=== PATIENT | male | born 1990 | race Caucasian/White ===

== ENCOUNTER 2025-01-25 03:06 | Emergency (ER) | payer OTHER, SELFPAY ==
[2025-01-25 03:09] VITALS: BP 135/61; PULSE 93; RESP 16; TEMP 36.6; O2SAT 95; BMI 43.4
--- NOTE | 2025-01-25 03:20 | CRLHL7_ITS ---
For Patients: As a result of the Century Cures Act, medical imaging exams and procedure reports are released immediately into your electronic medical record. You may view this report before your referring provider. If you have questions, please contact your health care provider. INDICATION: Jumping foot injury, heel pain, jump into water hit rock TECHNIQUE: Foot radiograph 3 views left COMPARISON: None FINDINGS: Bone: No acute fractures or aggressive bone lesions are identified. Joint: The visualized hindfoot, midfoot, and forefoot joints are unremarkable in appearance. No significant ankle effusion is seen. Soft tissue: Unremarkable. No radiopaque foreign bodies are seen. IMPRESSION: 1. No acute osseous injuries are noted. Dictated by: Neville Monroe MD @ 01/25/2025 03:36:22 (Electronically Signed)
--- NOTE | 2025-01-25 03:22 | ED.LOWEXIN ---
HPI - Extremity Injury (Lower) General Chief Complaint: Extremity Pain/Injury, Lower Stated Complaint: L foot injury Time Seen by Provider: 01/25/25 03:12 Source: patient Mode of arrival: ambulatory Limitations: no limitations History of Present Illness HPI Narrative: Patient presents to the ED in the wee hours with injury to his left foot, specifically left medial heel area. This happened 13 hours ago. Pain worsened tonight and he was unable to sleep. Did not try taking Tylenol, ibuprofen or any other interventions at home prior to coming to ED. Does not know when his last tetanus shot was. Does have a cut on the bottom of the heel. Injury happened [place], [place] the bridge onto a rock which he has done several times before and noticed pain. No head injury, no injury to other areas. Not anticoagulated, no long-term health problems. Not immunocompromised. Pain worse with weight-bearing. Denies past medical problems. Prior surgery on the opposite leg. No allergies, no long-term meds. Related Data Home Medications ?Medication ?Instructions ?Recorded ?Confirmed No Known Home Medications 01/25/25 01/25/25 Allergies Allergy/AdvReac Type Severity Reaction Status Date / Time No Known Drug Allergies Allergy Verified 01/25/25 03:15 Exam Const: Vital Signs, click to edit/add: Vital Signs - 24 hr 01/25/25 03:09 Temperature 98 F Pulse Rate [Pulse Oximeter] 93 Respiratory Rate 16 Blood Pressure [Le ft Upper Arm] 135/61 Pulse Oximetry 95 Oxygen Delivery Me thod Room Air Documenting provider has reviewed patient's vital signs: yes Common normals: no apparent distress General appearance: cooperative and well kempt HENMT: Common normals: normocephalic Head and scalp: normocephalic Face and sinus: normal facial exam Eye: Common normals: conjunctivae normal General eye: normal appearance of both eyes Conjunctiva: conjunctiva(e) normal Neck & C-Spine: General: normal visual inspection Resp: Common normals: normal respiratory effort Effort & inspection: able to speak in complete sentences Cardio: Common normals: regular rate and regular rhythm Rate: regular rate Rhythm: regular rhythm Other: Regular pulse palpated through left dorsalis pedis. Extremity: Other: Right foot appears grossly normal. A few little micro cuts but none with active bleeding. The left foot has swelling on the medial left heel and arch area. Superficial 1 cm horizontal laceration with no active bleeding. No evidence of foreign body. Tenderness to palpation of heal, plantar fascia. No tenderness on the ball of the foot, toes. Normal range of motion with no point bony tenderness or deformity to ankle. Remainder of midfoot and forefoot exam normal. Good capillary refill in toes and normal dorsalis pedis pulses. No deformities. Psych: Appearance: well kempt Mood and affect: euthymic mood Memory/cognition: memory grossly intact Insight: insight good Judgement: judgment good Skin: Narrative: Small micro lacerations to right foot, left foot with 1 cm horizontal laceration near area of pain. No active bleeding. Course Course ED Course: Left heel pain after jumping onto a rock. Possible fracture. Suspect sprain. Will give Toradol 10 mg p.o. x1. No obvious signs of neurovascular injury. We need to look up his tetanus shot date. Await x-ray. Reevaluation(s) Time of Reevaluation #1: 03:58 Reevaluation #1: Counseled patient on findings of x-ray, no signs of fracture. Procedure: Wound closure. Area was cleansed with soap and water, patted dry. Dermabond used to close the 1 cm horizontal incision with good wound reapproximation and hemostasis. Well tolerated. Counseled on wound care. Toradol has already been given, will also give Tylenol 1000 mg p.o. x1 as well as 25 of Vistaril for pain control. Placed in postop shoe, given crutches. Work ability note to be off of work for 3 days, then may return without restrictions. If he still has persistent symptoms, he should follow up with primary care provider and orthopedic provider for further restrictions. Counseled that we do not see any evidence of serious fracture but there can be soft tissue injuries that may not be identified on x-ray. None of these seem particularly dangerous at this time, but we should look closer if he does not have dramatic improvement in 5 days. Counseled on proper doses of Tylenol and ibuprofen for pain control, written instructions provided. Tetanus shot updated prior to discharge. Vital Signs Vital signs: Initial Vital Signs Temperature 98 F 01/25/25 03:09 Temperature Source Temporal Artery Scan 01/25/25 03:09 Pulse Rate 93 01/25/25 03:09 Respiratory Rate 16 09/29/25 03:09 Blood Pressure 135/61 01/25/25 03:09 Blood Pressure Mean 85 01/25/25 03:09 Blood Pressure Position Semi-Fowlers 01/25/25 03:09 Pulse Oximetry 95 01/25/25 03:09 Oxygen Delivery Method Room Air 01/25/25 03:09 Vital Signs Temperature 98 F 01/25/25 03:09 Pulse Rate 93 01/25/25 03:09 Respiratory Rate 16 01/25/25 03:09 Blood Pressure 135/61 01/25/25 03:09 Pulse Oximetry 95 01/25/25 03:09 Oxygen Delivery Method Room Air 01/25/25 03:09 Temperature 98 F 01/25/25 03:09 Pulse Rate 93 01/25/25 03:09 Respiratory Rate 16 01/25/25 03:09 Blood Pressure 135/61 01/25/25 03:09 Pulse Oximetry 95 01/25/25 03:09 Oxygen Delivery Method Room Air 01/25/25 03:09 Medications Administered Medications: Generic Name Dose Route Start Last Admin Trade Name Freq PRN Reason Stop Dose Admin Ketorolac Tromethamine 10 mg 01/25/25 03:20 01/25/25 03:31 Ketorolac 10 Mg Tablet PO 01/25/25 03:21 10 mg ONCE ONE Administration Tetanus/Diphtheria Toxoids Adsorbed 0.5 ml 01/25/25 03:31 01/25/25 03:39 Tetanus-Diphtheria Toxoids/Pf 0.5 Ml Syringe IM 01/25/25 03:32 0.5 ml .ONCE ONE Administration MDM - Extremity Injury (Lower) Imaging Data X-ray left foot: Attestation: I have reviewed the pertinent imaging results. My impression: Good bone density but no evidence of fracture. Good bony alignment with no serious soft tissue injuries or signs of effusions that would draw me towards an occult fracture Radiologist's impression: IMPRESSION: 1. No acute osseous injuries are noted. Dictated by: Neville Monroe MD @ 01/25/2025 03:36:22 Discharge Plan Discharge Clinical Impression: Contusion of foot Patient Disposition: Home w/ Parent or Adult Condition: Stable Instructions: Foot Contusion (ED) Additional Instructions: As we discussed, the x-ray does not show any signs of fracture. There are no signs of nerve or blood vessel injury either. The heel was designed to take pretty significant impact though I do not recommend jumping from elevated surfaces like this anymore at your age and size. It is safe to bear weight on your foot but it will be quite painful. You will not be able to work for the next few days. I have given you a note that reflects this. Plan to definitely be off Saturday and Saturday. Light your boss know that you will likely be out Saturday as well but will update them on Saturday as to how things are going. If you are still unable to return to work after that, you will need to see a primary care provider for more long-term work restrictions. I would recommend following up with an orthopedic provider if things are not markedly improved in 5 days. For pain, I recommend Tylenol 1000 mg every 6 hours and or ibuprofen 600 mg every 6 hours or 800 mg every 8 hours. Your next dose of these medications may be taken around 9:00 a.m.. A small amount of surgical glue was applied to the bottom of the cut on your foot. Your tetanus shot was updated as well. The glue will flake off on its own in a few days but allow the skin to heal well reducing infection. Try to keep the foot elevated for the next 24 hours. You should return to the emergency department if you have loss of function or other severe, alarming symptoms. It is okay to use gentle [id number] sleep aids like melatonin, Benadryl or Unisom to help you sleep in addition to the pain medications as above. Activity Level: Activity as Tolerated Discharge Diet: Regular Prescriptions: No Action No Known Home Medications Follow Up/Referrals: Provider,Not a Local [Primary Care Provider, Family Practice] Stand Alone Forms: [facility] Info Instructions
[2025-01-25] MEDS: KETOROLAC 10 MG TABLET PO (03:31)
[2025-01-25] MEDS: TETANUS-DIPHTHERIA TOXOIDS/PF 0.5 ML SYRINGE IM (03:39)
[2025-01-25] MEDS: ACETAMINOPHEN 500 MG TABLET 1000 MG PO (04:01)
== END 2025-01-25 04:27 | disposition home or self-care (01) ==
PROVIDERS: Emergency Provider Family Medicine
DX: S91.312A Laceration without foreign body, left foot, initial encounter (principal); W22.8XXA Striking against or struck by other objects, initial encounter; Y92.828 Other wilderness area as the place of occurrence of the external cause; Z23 Encounter for immunization
CPT/HCPCS: 12001; 73630; 90471; 90714; 96372; 99283; A9270